=== PATIENT | male | born 2000 ===

== ENCOUNTER 2025-04-08 08:59 | Outpatient (CLI) | payer BC, SELFPAY ==
--- OUTSIDE RECORDS SUMMARY | 2024-04-25 10:26 | XMS_ITS | Encounter Summary ---
Author Name [facility] [place] [facility] [place] [facility] [place] Address [address] [place] [address] Care Team Providers Care Freelance Designer Name Role Phone VAN CRUZ Primary Care Provider Unavailabl e Insurance Providers: All historical and current Section Date Range: From patient's date of to the date document was created. This section includes the names of all active insurance providers for the patient. Insurance Provider Type of Coverage Plan Name Start of Policy Coverage End of Policy Coverage Group Number Member ID Insurance Provider's Telephone Number Policy Mott's Name Patient's Relationship to Policy Mott [place] PREFERRED PROVIDER ORGANIZAT ION (PPO) FEP BASIC FAM Aug 21, 2010 112 [id number] [phone] FRIDA,CL AUDIA NATURAL CHILD ANTHEM [place] FEP PREFERRED PROVIDER ORGANIZAT ION (PPO) FEP BASIC FAM Aug 21, 2010 112 [id number] [phone] FRIDA,CL AUDIA NATURAL CHILD AN[place] FEP PREFERRED PROVIDER ORGANIZAT ION (PPO) FEP BASIC FAM Aug 21, 2010 112 [id number] [phone] FRIDA,CL AUDIA NATURAL CHILD [place] FEP PREFERRED PROVIDER ORGANIZAT ION (PPO) FEP BASIC FAM Aug 21, 2010 112 [id number] [phone] FRIDA,CL AUDIA NATURAL CHILD [place] FEP ([id number]) PRESCRIPT ION FEPRX Aug 21, 2010 [id number] [phone] FRIDA,RI CARDO NATURAL CHILD Selected Encounter This section includes the information on record at [place] for the Encounter. Date/Time Encounter Type Encounter Description Reason Provider Source Apr 25, 2024 03:26 PM EMERGENCY DEPT VISIT [facility] EMERGENCY DEPT ICD-10-CM Z76.0 Encounter for issue of repeat prescription CAESAR RUGGIERO [facility] Encounter Template Text not used by [place] Assessments - Encounter Diagnoses This section includes the primary and secondary diagnoses documented for the Encounter. Date/Time Primary/Secondary Diagnosis Diagnosis Name Provider Source Apr 25, 2024 03:52 PM PRIMARY Encounter for issue of repeat prescription CAESAR RUGGIERO Vladimir [facility] Apr 25, 2024 03:52 PM SECONDARY Anxiety disorder, unspecified CAESAR RUGGIERO [facility] Plan of Treatment: Future Appointments (+ 6 months) and Future Tests (+/- 45 days) The Plan of Treatment section includes future care activities for the patient from all [place] treatmentfacilities. This section includes future appointments and future orders which are active, pending or scheduled. Future Appointments This section includes appointments that were scheduled to occur 6 months from the date of the Encounter, up to a maximum of 20 appointments. The data comes from all [place] treatment facilities. Appointment Date/Time Appointment Type Appointme nt Facility Name Aug 06, 2024 01:25 PM AMBULATORY - MEDICINE [facility] Sep 05, 2024 09:30 AM AMBULATORY - MEDICINE [facility] Oct 08, 2024 08:00 AM AMBULATORY - PSYCHIATRY [facility] Vital Signs: All taken on the encounter date This section contains inpatient and outpatient Vital Signs collected on the date of the Encounter. Date/Time Temperature Pulse Blood Pressure Respiratory Rate SP02 Pain Height Weight Body Mass Index Source Apr 25, 2024 03:33 PM 98.3 63 148/93 [address] [facility] Social History: Smoking Status (Most current) and Tobacco Use (All prior to encounter date) This section includes the most current, and the historical, smoking and tobacco- related health factors from the [place] facility where the Encounter took place. Current Smoking Status This section includes the most current smoking, or tobacco-related health factor, from the [place] facility where the Encounter took place. Date/Time Current Smoking Status Comment Lamin gonzalez Jul 28, 2022 09:20 AM VA-TOBACCO NEVER USED [facility] Encounter Notes: All associated encounter notes This section contains the clinical notes associated to the Encounter. Date/Time Encounter Note(s) Provider Source Apr 25, 2024 03:48 PM PHYSICIAN EMERGENC Y DEPT NOTE: LOCAL TITLE: EMERGENCY DEPARTMENT ST STANDARD TITLE: PHYSICIAN EMERGENCY DEPT NOTE DATE OF NOTE: APR 25, 2024@15:48 ENTRY DATE: APR 25, 2024@15:51 AUTHOR: CAESAR RUGGIERO EXP COSIGNER: URGENCY: STATUS: COMPLETED TRIAGE CHIEF COMPLAINT: medication refill HPI: --- 24 yo M on venlafaxine for anxiety who pw requesting refill while awaiting mail order to arrive. No other issues. REVIEW OF SYSTEMS: See HPI for further details. At least 10 systems reviewed and otherwise negative, except as noted above MEDICAL HISTORY: 1) Anxiety disorder 2) Pain of right knee region 3) Headache ALLERGIES: Patient has answered NKA CURRENT MEDICATIONS: Active Outpatient Medications (including Supplies): Active Outpatient Medications Status 1) VENLAFAXINE HCL 75MG 24HR SA CAP TAKE ONE CAPSULE BY ACTIVE MOUTH ONCE A DAY WITH FOOD. DO NOT ABRUPTLY DISCONTINUE MEDICATION. I have briefly reviewed the patient's medication list with the patient and/or his/her care-occasional caregiver. Any medication discrepancies have been resolved. Patient will be provided with an updated list of his/her medication(s) if discharged from ED. SURGICAL HISTORY: not pertinent unless note in HPI FAMILY HISTORY: not pertinent unless noted in HPI SOCIAL HISTORY: Smoking status: No data available for: Current Tobacco User Alcohol Use: ____ PHYSICAL EXAM: VITAL SIGNS: Temp: 98.3 F [36.8 C] (04/25/2024 15:33) HR: 63 (04/25/2024 15:33) BP: 148/93 (04/25/2024 15:33) RR: 16 (04/25/2024 15:33) O2 Sat: 97% (04/25/2024 15:33) Measurement DT PAIN 04/25/2024 15:33 0 CONST: alert, nad ------ HENT: airway patent. ---- EYES: sclera clear, EOMI, no obvious jaundice ---- NECK: Nl rom. no rigidity. ---- CV: regular rate --- PULM: no stridor. nonlabored ----- ABDOMEN: deferred ---- : deferred -- RECTAL: deferred ------ EXTR: wwp ----- NEURO: alert ------ observed mobility in ed- ambulatory PSYCH: nl mood, affect ----- SKIN: other observed skin wnl ---- ED MEDICAL DECISION MAKING and ED COURSE: 24 yo M on venlafaxine for anxiety who pw requesting refill while awaiting mail order to arrive. Spoke with pharmacy, will provide partial. Went over home care instructions, return precautions, and follow up. Questions answered. Telehealth number given as additional resource. LABS: na ----- RADIOLOGY: na MEDICATIONS GIVEN IN ED: [ x ] NO DECISION to ADMIT / DISCHARGE TIME: -------- OENOLOGIST SERVICE/TIME: Emergency Department (ED) Medical Decision Making (MDM) Category: Low Medical Decision Making: Category 1: I have reviewed prior external note(s) from the following sources: Office records DISPOSITION: home Nursing notes, medications, vital signs, allergies and pertinent labs & imaging studies reviewed (see chart for details) with lab results reviewed with patient/family and radiology results reviewed with patient/family. DISPOSITION CONDITION:[ x ] Improved [ ] Unchanged [ ] Deteriorated ADDITIONAL SIGNATURE PCP: [ x] YES [ ] NO [ ] not listed CLINICAL IMPRESSION: 1 - medication refill 2 - 3 - DISCHARGE INSTRUCTIONS AND PATIENT-DIRECTED FOLLOW-UP RECOMMENDATIONS FROM DR RUGGIERO: see also additional printed discharge instructions DIET: your usual ACTIVITY: your usual, as tolerated NEW MEDS: none MEDICATION RECONCILIATION: Continue all prescribed FOLLOW-UP WITH PRIMARY LEATHER TANNER/SPECIALIST: follow up with your primary care doctor in 1 week or sooner RETURN TO EMERGENCY: as discussed for worsening or changing symptoms Active Outpatient Medications (including Supplies): Active Outpatient Medications Status 1) VENLAFAXINE HCL 75MG 24HR SA CAP TAKE ONE CAPSULE BY ACTIVE MOUTH ONCE A DAY WITH FOOD. DO NOT ABRUPTLY DISCONTINUE MEDICATION. /marsha/ CAESAR RUGGIERO Emergency Department Physician Signed: 04/25/2024 17:23 Receipt Acknowledged By: 04/29/2024 08:33 /marsha/ VAN CRUZ STAFF PHYSICIAN 04/28/2024 08:29 /marsha/ TRISH DE LA TORRE, RN REGISTERED NURSE CAESAR RUGGIERO [facility]
--- OUTSIDE RECORDS SUMMARY | 2024-04-25 10:26 | XMS_ITS | Encounter Summary ---
Author Name [facility] [place] [facility] [place] [facility] [place] Address [address] [place] [id number] Care Team Providers Care Captain Fire Prevention Bureau Name Role Phone VAN CRUZ Primary Care [...] FEP BASIC FAM Aug 21, 2010 112 [id number] [phone] FRIDA,CL AUDIA NATURAL CHILD ANTHEM [employer] FEP PREFERRED PROVIDER ORGANIZAT ION (PPO) FEP BASIC FAM Aug 21, 2010 112 [id number] [phone] FRIDA,CL AUDIA NATURAL CHILD AN[employer] FEP PREFERRED PROVIDER ORGANIZAT ION (PPO) FEP BASIC FAM Aug 21, 2010 112 [id number] [phone] FRIDA,CL AUDIA NATURAL CHILD [place] FEP PREFERRED PROVIDER ORGANIZAT ION (PPO) FEP BASIC FAM Aug 21, 2010 112 [id number] [phone] FRIDA,CL AUDIA NATURAL CHILD [place] FEP ([id number]) PRESCRIPT ION FEPRX Aug 21, 2010 [id number] [phone] FRIDA,RI CARDO NATURAL CHILD Selected Encounter This section includes the information on record at [place] for the Encounter. Date/Time Encounter Type Encounter Description Reason Provider Source Apr 25, 2024 03:26 PM Outpatient Encounter EMERGENCY DEPT MARCELLO MATOS Encounter Template Text not used by [place] Plan of Treatment: Future Appointments (+ 6 months) and Future Tests (+/- 45 days) The Plan of Treatment section includes future care activities for the patient from all [place] treatmentfacilities. This section includes future appointments and future orders which are active, pending or scheduled. Future Appointments This section includes appointments that were scheduled to occur 6 months from the date of the Encounter, up to a maximum of 20 appointments. The data comes from all [place] treatment facilities. Appointment Date/Time Appointment Type Appointme nt Facility Name Aug 06, 2024 01:25 PM AMBULATORY - MEDICINE [facility] Sep 05, 2024 09:30 AM AMBULATORY - MEDICINE [facility] Oct 08, 2024 08:00 AM AMBULATORY - PSYCHIATRY [facility] Vital Signs: All taken on the encounter date This section contains inpatient and outpatient Vital Signs collected on the date of the Encounter. Date/Time Temperature Pulse Blood Pressure Respiratory Rate SP02 Pain Height Weight Body Mass Index Source Apr 25, 2024 03:33 PM 98.3 63 148/93 16 97 0 [facility] Social History: Smoking Status (Most current) and Tobacco Use (All prior to encounter date) This section includes the most current, and the historical, smoking and tobacco- related health factors from the [place] facility where the Encounter took place. Current Smoking Status This section includes the most current smoking, or tobacco-related health factor, from the [place] facility where the Encounter took place. Date/Time Current Smoking Status Comment Facil jordany Jul 28, 2022 09:20 AM VA-TOBACCO NEVER USED [facility] Encounter Notes: All associated encounter notes This section contains the clinical notes associated to the Encounter. Date/Time Encounter Note(s) Provider Source Apr 25, 2024 03:34 PM EMERGENCY DEPT TRI AGE NOTE: LOCAL TITLE: EMERGENCY DEPARTMENT TRIAGE NOTE STANDARD TITLE: EMERGENCY DEPT TRIAGE NOTE DATE OF NOTE: APR 25, 2024@15:34 ENTRY DATE: APR 25, 2024@15:34:29 AUTHOR: MARCELLO MATOS EXP COSIGNER: URGENCY: STATUS: COMPLETED Emergency Department/Urgent Care Center Triage Patient age:24 Sex: MALE On arrival patient was: AMBULATORY Patient phone number: Allergies: Patient has answered NKA Subjective/Chief Complaint: medication refll Objective: states he needs a partial med refill of his effexor until his arrives in the mail. no other complaints to this RN The patient is not a fall risk. BP: 148/93 P: 63 R: 16 WT: T: 98.3 HT: Sepsis Screening Evaluation Emergency Severity Index (JANICE) level Level 4 Current Medications: Active Outpatient Medications (including Supplies): Active Outpatient Medications Status 1) VENLAFAXINE HCL 75MG 24HR SA CAP TAKE ONE CAPSULE BY ACTIVE MOUTH ONCE A DAY WITH FOOD. DO NOT ABRUPTLY DISCONTINUE MEDICATION. Current Problems: 1) Anxiety disorder 2) Pain of right knee region 3) Headache Suicide Screen: [place] Suicide Severity Rating Scale (C-SSRS) screener 1. Over the past month, have you wished you were or wished you could go to sleep and not wake up? No 2. Over the past month, have you had any actual thoughts of killing yourself? No 3. Over the past month, have you been thinking about how you might do this? Response not required due to responses to other questions. 4. Over the past month, have you had these thoughts and had some intention of acting on them? Response not required due to responses to other questions. 5. Over the past month, have you started to work out or worked out the details of how to kill yourself? Response not required due to responses to other questions. 6. If yes, at any time in the past month did you intend to carry out this plan? Response not required due to responses to other questions. 7. In your lifetime, have you ever done anything, started to do anything, or prepared to do anything to end your life (for example, collected pills, obtained a gun, gave away valuables, went to the roof but didn't jump)? No 8. If YES, was this within the past 3 months? Response not required due to responses to other questions. /marsha/ MARCELLO MATOS RN Signed: 04/25/2024 15:35 MARCELLO MATOS [facility]
--- OUTSIDE RECORDS SUMMARY | 2024-08-06 08:25 | XMS_ITS | Encounter Summary ---
Author Name [facility] [place] [facility] [place] [facility] [place] Address [address] [place] [address] Care Team Providers Care Certified Professional Coder Name Role Phone VAN CRUZ Primary Care [...] FEP BASIC FAM Aug 21, 2010 112 [id number] [phone] FRIDA,CL AUDIA NATURAL CHILD ANTHEM [employer] [place] FEP PREFERRED PROVIDER ORGANIZAT ION (PPO) FEP BASIC FAM Aug 21, 2010 112 [id number] [phone] FRIDA,CL AUDIA NATURAL CHILD ANTHEM [employer] [place] FEP PREFERRED PROVIDER ORGANIZAT ION (PPO) FEP BASIC FAM Aug 21, 2010 112 [id number] [phone] FRIDA,CL AUDIA NATURAL CHILD [place] FEP PREFERRED PROVIDER ORGANIZAT ION (PPO) FEP BASIC FAM Aug 21, 2010 112 [id number] [phone] FRIDA,CL AUDIA NATURAL CHILD [place] FEP ([id number]) PRESCRIPT ION FEPRX Aug 21, 2010 [id number] [phone] FRIDA,RI CARDO NATURAL CHILD Selected Encounter This section includes the information on record at [place] for the Encounter. Date/Time Encounter Type Encounter Description Reason Provider Source Aug 06, 2024 01:25 PM EMERGENCY DEPT VISIT [facility] EMERGENCY DEPT ICD-10-CM F41.9 Anxiety disorder, unspecified GENDI,WAHIED IHE Encounter Template Text not used by [place] Assessments - Encounter Diagnoses This section includes the primary and secondary diagnoses documented for the Encounter. Date/Time Primary/Secondary Diagnosis Diagnosis Name Provider Source Aug 06, 2024 03:41 PM PRIMARY Anxiety disorder, unspecified GENDI,WAHIED [facility] Plan of Treatment: Future Appointments (+ 6 months) and Future Tests (+/- 45 days) The Plan of Treatment section includes future care activities for the patient [facility] [place] [facility] This section includes future appointments and future orders which are active, pending or scheduled. Future Appointments This section includes appointments that were scheduled to occur 6 months from the date of the Encounter, up to a maximum of 20 appointments. The data comes from all [facility]. Appointment Date/Time Appointment Type Appointme nt Facility Name Sep 05, 2024 09:30 AM AMBULATORY - MEDICINE [facility] Oct 08, 2024 08:00 AM AMBULATORY - PSYCHIATRY [facility] Active, Pending, and Scheduled Orders This section includes a listing of several types of active, pending, and scheduled orders, including clinic medications orders, diagnostic test orders, procedure orders and consult orders; where the start date of the order is 45 days before the date of the Encounter or 45 days after the date of theEncounter. The data comes from all [facility]. Test Date/Time Test Type Test Details Facility Name Aug 22, 2024 12:00 AM Laboratory - Chemistry Order [id number] BLOOD [facility] Aug 22, 2024 12:00 AM Laboratory - Chemistry Order COMPREHENSIVE METABOLIC PANEL GREEN LI/HEP BLD/PLAS PLASMA [facility] Aug 22, 2024 12:00 AM Laboratory - Chemistry Order CBC BLOOD [facility] Aug 22, 2024 12:00 AM Laboratory - Chemistry Order LIPID PANEL (STL) GREEN LI/HEP BLD/PLAS PLASMA [facility] Aug 22, 2024 12:00 AM Laboratory - Chemistry Order TSH (MA-PB) GOLD/RED SST SERUM [facility] Aug 22, 2024 12:00 AM Laboratory - Chemistry Order VITAMIN D, 25-HYDROXY GOLD/RED SST SERUM [facility] Vital Signs: All taken on the encounter date This section contains inpatient and outpatient Vital Signs collected on the date of the Encounter. Date/Time Temperature Pulse Blood Pressure Respiratory Rate SP02 Pain Height Weight Body Mass Index Source Aug 06, 2024 01:46 PM 98.2 69 152/88 16 0 [facility] Social History: Smoking Status (Most current) and Tobacco Use (All prior to encounter date) This section includes the most current, and the historical, smoking and tobacco- related health factors from the [facility] where the Encounter took place. Current Smoking Status This section includes the most current smoking, or tobacco-related health factor, from the [place] facility where the Encounter took place. Date/Time Current Smoking Status Comment Facil carlos Jul 28, 2022 09:20 AM [place]-TOBACCO NEVER USED [facility] Encounter Notes: All associated encounter notes This section contains the clinical notes associated to the Encounter. Date/Time Encounter Note(s) Provider Source Aug 06, 2024 03:24 PM PHYSICIAN EMERGENC Y DEPT NOTE: LOCAL TITLE: EMERGENCY DEPARTMENT [facility] STANDARD TITLE: PHYSICIAN EMERGENCY DEPT NOTE DATE OF NOTE: AUG 06, 2024@15:24 ENTRY DATE: AUG 06, 2024@15:24:55 AUTHOR: MYA ACOSTA COSIGNER: URGENCY: STATUS: COMPLETED 24 yo M on venlafaxine for anxiety who presents to ER C/O requesting refill VENLAFAXINE HCL 75MG while awaiting mail order to arrive. No other issues. No depression no SI no HI REVIEW OF SYSTEMS: See HPI for further details. All 10 systems reviewed and otherwise negative unless otherwise detailed herein. PAST MEDICAL HISTORY: 1) Anxiety disorder 2) Pain of right knee region 3) Headache CURRENT MEDICATIONS: Active Outpatient Medications (including Supplies): Active Outpatient Medications Status 1) VENLAFAXINE HCL 75MG 24HR SA CAP TAKE ONE CAPSULE BY MOUTH ACTIVE ONCE A DAY WITH FOOD. DO NOT ABRUPTLY DISCONTINUE MEDICATION. Indication: FOR ANXIETY Pending Outpatient Medications Status 1) VENLAFAXINE HCL 75MG 24HR SA CAP TAKE ONE CAPSULE BY MOUTH PENDING ONCE A DAY WITH FOOD. DO NOT ABRUPTLY DISCONTINUE MEDICATION. Indication: FOR ANXIETY 2 Total Medications No medications found.. 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 Any medication discrepancies have been resolved. Patient will be provided with an updated list of his/her medication(s). SURGICAL HISTORY: not pertinent FAMILY HISTORY: not pertinent SOCIAL HISTORY: Social History Main Topics: Smoking status: No data available for: Current Tobacco User Alcohol Use: not indorsed ____ Illicit Drug Use: not indorsed Sexual Activity: Other Topics of Concern: Child bearing age: N/A LMP: N/A possible: N/A ALLERGIES: Review of patient's allergies indicates: Patient has answered NKA PHYSICAL EXAM: VITAL SIGNS: 152/88 (08/06/2024 13:46)69 (08/06/2024 13:46)97% (04/25/2024 15:33)98.2 F [36.8 C] (08/06/2024 13:46)16 (08/06/2024 13:46)The OBJECT WEIGHT LAST 3 was NOT found...Contact IRM. MAThe OBJECT was NOT found...Contact IRM.PAIN ASSESSMENTThe OBJECT was NOT found...Contact IRM. Measurement DT PAIN 08/06/2024 13:46 0 General: cooperative, well appearing, no acute distress HEENT: atraumatic, symmetric, sclera anicteric, no pharyngeal erythema/exudate Neck: No JVD, no LAD CV: RRR, normal S1/S2, no murmurs Lungs: CTAB, no rales Abd: nontender, nondistended, nml bowel sounds Skin: no rashes or lesions, warm, dry Neuro: A&O x3, follows commands, no focal deficits, CN II-XII grossly in tact Ext: 5/5 strength in all extremities, 2+ pulses, good sensation throughout LABS: RADIOLOGY: ECG IMPRESSION: ED COURSE & MEDICAL DECISION MAKING: Nursing notes, medications, vital signs, allergies and pertinent labs & imaging studies reviewed (see chart for details) with lab results reviewed with patient and family/caregivers at bedside and radiology results reviewed with patient and any family/caregivers at bedside. Stable, alert, nontoxic, nonfocal with clinically apparent Clinical information obtained from an independent historian. History obtained from or confirmed by: Discussed with radiology regarding test interpretation imaging:patient and family I performed an independent interpretation of:see notes Patient's care impacted by: _x__Medical records Management of the patient was discussed with: ___Hospitalist _x__Consultant psych ___Behavioral health provider I considered admission/ observation but decided upon discharge due to: hospitalization not required STOVE REFINISHER SERVICE/TIME: MEDICATIONS GIVEN IN ED: [ ] YES [ x ] NO DIFFERENTIAL DIAGNOSES CONSIDERED: DECISION to ADMIT / DISCHARGE TIME: 15.30 SMOKING CESSATION RECOMMENDATION: The patient was strongly advised to consider stopping smoking, advised of risks of smoking and benefits of stopping; and was recommended for referral/abatement options. DISPOSITION CONDITION:[ ] Improved [ x ] Unchanged [ ] Deteriorated CLINICAL IMPRESSION: 1 - anxiety on venlafaxine requesting refill VENLAFAXINE HCL 75MG while awaiting mail order to arrive. No other issues. No depression no SI no HI Refill medicine and to follow-up with psychiatry and behavioral health return to ER if SI or HI or new symptoms 2 - 3 - DISCHARGE INSTRUCTIONS AND PATIENT-DIRECTED FOLLOW-UP RECOMMENDATIONS: DIET: No change ACTIVITY: As tolerated NEW MEDS: Refill his medicine venlafaxine MEDICATION RECONCILIATION: CONTINUE ALL PRESCRIBED MEDICATIONS DIRECTED EXCEPT: FOLLOW-UP WITH PRIMARY ELEMENTARY VOCAL MUSIC TEACHER/SPECIALIST: routine in 1-2 weeks if not improving, sooner if worse RETURN TO EMERGENCY: if any worries or concerns ADDITIONAL SIGNATURE PCP: [ x] YES [ ] NO [ ] not listed Active Outpatient Medications (including Supplies): Active Outpatient Medications Status 1) VENLAFAXINE HCL 75MG 24HR SA CAP TAKE ONE CAPSULE BY MOUTH ACTIVE ONCE A DAY WITH FOOD. DO NOT ABRUPTLY DISCONTINUE MEDICATION. Indication: FOR ANXIETY Pending Outpatient Medications Status 1) VENLAFAXINE HCL 75MG 24HR SA CAP TAKE ONE CAPSULE BY MOUTH PENDING ONCE A DAY WITH FOOD. DO NOT ABRUPTLY DISCONTINUE MEDICATION. Indication: FOR ANXIETY 2 Total Medications /marsha/ MYA ACOSTA MD Staff Physician, Emergency Department Signed: 08/06/2024 15:33 Receipt Acknowledged By: 08/11/2024 10:10 /marsha/ VAN CRUZ STAFF PHYSICIAN MYA ACOSTA [facility] Aug 06, 2024 01:45 PM EMERGENCY DEPT TRI AGE NOTE: LOCAL TITLE: EMERGENCY DEPARTMENT TRIAGE NOTE STANDARD TITLE: EMERGENCY DEPT TRIAGE NOTE DATE OF NOTE: AUG 06, 2024@13:45 ENTRY DATE: AUG 06, 2024@13:45:24 AUTHOR: JOYCELYN RODRÍGUEZ EXP COSIGNER: URGENCY: STATUS: COMPLETED Emergency Department/Urgent Care Center Triage Patient age:24 Sex in chart: MALE Mode of Arrival: Self Mode of Mobility: * Walk Chief Complaint: medication refill advertising 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 Pt states he is out of his Effexor. Pt denies any additional medical complaints. Level of Consciousness (AVPU): Alert = Appears aware of and responsive to the environment on their own. Follows commands, opens eyes spontaneously, and tracks objects. Vital Signs: Temperature 98.2 F (36.8 C) Pulse 69 Respirations 16 Blood Pressure 152/88 Pulse Oximetry 98 Room Air National Early Warning Score (NEWS): The NEWS total is 0. 1. Temperature (C/F): Score = 0 36.1 - 38.0 C (96.9 - 100.4 F) 2. Pulse: Score = 0 51-90 3. Respirations: Score = 0 12-20 4. Blood Pressure (Only Systolic BP, mmHg): Score = 0 111-219 5. Pulse Oximetry: Score = 0 96% or greater 6. Supplemental oxygen in use: Score = 0 No 7. AVPU: Score = 0 Alert Pain: No pain Pain Score: 0 Suicide Screen: [place] Suicide Severity Rating Scale (C-SSRS) screener 1. [...] required due to responses to other questions. Emergency Severity Index (JANICE) level: Level 5 Previously documented allergies: Patient has answered NKA Current Problems: 1) Anxiety disorder 2) Pain of right knee region 3) Headache /es/ JOYCELYN RODRÍGUEZ PLANT PRODUCTION MANAGER REGISTERED NURSE Signed: 08/06/2024 13:47 JOYCELYN RODRÍGUEZ [facility]
--- OUTSIDE RECORDS SUMMARY | 2025-04-08 09:06 | XMS_ITS | Continuity of Care Document ---
Author Name [facility] Organization [facility] Care Team Providers Care Actuarial Trainee Name Role Phone [facility] Unavailable Unavailable Problems Combined list of problems from Department of [facility] and [facility] facilities. It does not include entries that were removed or entered in error. Problem Status Onset Date Problem Type Date of Resolution Comments Source Pneumonia, unspecified organism Active 7 Condition [facility] Acute upper respiratory infection, unspecified Active 7 Condition [facility] Anxiety disorder Active Condition [facility] Headache Active Condition [facility] Pain of right knee region Active Condition [facility] Adjustment disorder Active Condition Unknown Organization OCD - Obsessive-compuls job disorder Active Condition Unknown Organization Patellar tendinitis, right knee Active Condition [facility] Diagnosis: ICD-10-CM F43.20 Adjustment disorder, unspecified Active Diagnosis [facility] Diagnosis: ICD-10-CM F41.9 Anxiety disorder, unspecified Active Diagnosis [facility] Diagnosis: ICD-10-CM Z71.9 Counseling, unspecified Active Diagnosis [facility] Diagnosis: ICD-10-CM Z76.0 Encounter for issue of repeat prescription Active Diagnosis [facility] Medications Combined list of outpatient medications from Department of [facility] and [facility] facilities.Medications provided include 1) outpatient medications from the last 15 months, and 2) patient-reported medications. Medication Details Route Status Patient Instructions Prescription Expires Prescription Number Last Dispense Date Ordering Provider Order Date Order Qty Source EFFEXOR XR (BRAND) 75 MG ORAL CP24 TAKE ONE CAPSULE BY MOUTH ONCE A DAY WITH FOOD. DO NOT ABRUPTLY DISCONTI NUE MEDICATI ON. 09/26/2024 [id number] VAN CRUZ 2023 90 [facility] Effexor XR 75 mg oral capsule, extended release 3 cap(s), Oral, Daily, # 180 cap(s), 3 total refill(s ), Maintena nce, Pharmacy : [address] [facility] Oral (given by mouth) Ordered 2020 180.0 0030[facility] Effexor XR 75 mg oral capsule, extended release 3 cap(s), Oral, Daily, # 180 cap(s), 3 total refill(s ), [facility], Route to [facility] Oral (given by mouth) Discont inued 03/27/2021 1 2020 180.0 0030C[facility] l hydrOXYzine hydrochlori de 25 mg oral tablet 1 tab(s), Oral, every day at bedtime, PRN as needed for anxiety, # 60 tab(s), 1 total refill(s ), Acute, 12/10/20 11:28:00 AM CDT, Pharmacy : [address] [facility] Oral (given by mouth) Discont inued 12/10/20202020 60.0 0030[facility] hydrOXYzine hydrochlori de 25 mg oral tablet 1 tab(s), Oral, every day at bedtime, # 60 tab(s), 1 total refill(s ), Acute, 12/10/21 2:00:00 AM CDT, Pharmacy : [address] [facility] Oral (given by mouth) Complet ed 12/10/2021 1 2021 60.0 0030[facility] naproxen 500 mg oral delayed release tablet 1 tab(s), Oral, BID, with food, # 60 tab(s), 0 total refill(s ), 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 Oral (given by mouth) Complet ed 10/10/2020 1 2020 60.0 0030[facility] l venlafaxine 150 mg oral capsule, extended release venlafax ine 150 mg oral capsule, extended release Start Date: 12/22/19 Stop Date: 03/27/21 Status: Disconti nued Repeat number: 1 Discont inued 03/27/20212020 No Facilit y Access venlafaxine 37.5 mg oral capsule, extended release venlafax ine 37.5 mg oral capsule, extended release Start Date: 05/30/19 Stop Date: 09/11/20 Status: Disconti nued Repeat number: 1 Discont inued 09/11/20202020 No Facilit y Access VENLAFAXINE HCL 75MG 24HR CAP,SA TAKE ONE CAPSULE BY MOUTH ONCE A DAY WITH FOOD. DO NOT ABRUPTLY DISCONTI NUE MEDICATI ON. ORAL ACTIVE 11/26/2025 [id number] JANICE MENARD SSA S 2024 90 [facility] VENLAFAXINE HCL 75MG 24HR CAP,SA TAKE ONE CAPSULE BY MOUTH ONCE A DAY WITH FOOD. DO NOT ABRUPTLY DISCONTI NUE MEDICATI ON. ORAL DISCONT INUED 09/26/2024 [id number] NANCY,NI DHI 2023 90 [facility] VENLAFAXINE HCL 75MG 24HR CAP,SA TAKE ONE CAPSULE BY MOUTH ONCE A DAY FOR ANXIETY WITH FOOD. DO NOT ABRUPTLY DISCONTI NUE MEDICATI ON. ORAL 09/05/2024 [id number] GENJEFFERSON,MARE IED 2023 30 [facility] Allergies, Adverse Reactions, Alerts Combined list of allergies from Department of Defense and Veterans Affairs facilities. It does not include entries that were removed or entered in error. Substance Category Reaction Severity Reaction type Status Date Reported Comments Source No Known Allergies Drug allergy (disorder) active 05/09/2017 [facility] Immunizations Combined list of available immunizations from the Department of Defense and Veterans Affairs facilities. 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 HPV (PAPILLOMAVIR US-GARDISIL) (HISTORICAL) 2020 62 complet ed [facility] COVID-19 (JOSE), VECTOR-NR, RS-AD26, PF, 0.5 ML 1 2020 212 complet ed [facility] COVID-19 vaccine, vector-nr, rS-Ad26, PF, 0.5 mL 2020 [place], [employer] (JSN) Not Given COVID-19 vaccine, vector-nr , rS-Ad26, PF, 0.5 mL DoD influenza, injectable, quadrivalent, preservative free 2019 ALONSO ZAZUETA () Not Given influenza , injectabl e, quadrival ent, preservat job free DoD Influenza, injectable, quadrivalent, preservative free 0 2019 150 (MVX) complet ed Influenza , injectabl e, quadrival ent, preservat job free DoD influenza, injectable, quadrivalent 2018 [facility] [id number] 158 Seqirus complet ed influenza , injectabl e, quadrival ent 07/02/19 Given Ambulat ory Pharmac y influenza, injectable, quadrivalent, contains preservative 1 2018 TING HERNADEZ [id number] 158 [employer] (SEQ) complet ed influenza , injectabl e, quadrival ent, contains preservat job DoD influenza, injectable, quadrivalent- pf 2017 [id number] 150 GlaxoSmithKli ne complet ed influenza , injectabl e, quadrival ent-pf 07/03/18 Given Ambulat ory Pharmac y Influenza, injectable, quadrivalent, preservative free 0 2017 [id number] 150 SmithKline (SKB) complet ed Influenza , injectabl e, quadrival ent, preservat job free DoD varicella virus vaccine 2017 zBertha soto Arm [id number] 21 Merck & Company Inc complet ed varicella virus vaccine 05/29/18 Given Ambulat ory Pharmac y hepatitis A-hepatitis B vaccine 2017 Beatriz malone Arm [id number] 104 GlaxoSmithKli ne complet ed hepatitis A-hepatit is B vaccine 05/29/18 Given Ambulat ory Pharmac y varicella virus vaccine 2 2017 CELESTINA WELSH P [id number] 21 Merck (MSD) complet ed varicella virus vaccine DoD hepatitis A and hepatitis B vaccine 3 2017 CELESTINA WELSH P [id number] 104 [facility] ([facility] complet ed hepatitis A and hepatitis B vaccine DoD influenza, injectable, quadrivalent 2016 [facility] [id number] 158 Seqirus complet ed influenza , injectabl e, quadrival ent 06/08/17 Given Ambulat ory Pharmac y hepatitis A-hepatitis B vaccine 2016 zzLef t Arm [id number] 104 GlaxoSmithKli ne complet ed hepatitis A-hepatit is B vaccine 06/08/17 Given Ambulat ory Pharmac y poliovirus vaccine, inactivated [facility] [id number] 10 sanofi pasteur complet ed polioviru s vaccine, inactivat ed 06/08/17 Given Ambulat ory Pharmac y poliovirus vaccine, inactivated 1 2016 NANCI PANDA [id number] 10 Sanofi Pasteur ([facility]) complet ed polioviru s vaccine, inactivat ed DoD hepatitis A and hepatitis B vaccine 2 2016 Unknown, Provider [id number] 104 [facility] (SKB) complet ed hepatitis A and hepatitis B vaccine DoD influenza, injectable, quadrivalent, contains preservative 1 2016 NANCI PANDA [id number] 158 Seqirus (SEQ) complet ed influenza , injectabl e, quadrival ent, contains preservat job DoD varicella virus vaccine 2016 zzLef t Arm [id number] 21 Merck & Company Inc complet ed varicella virus vaccine 05/17/17 Given Ambulat ory Pharmac y varicella virus vaccine 1 2016 AMY BONILLA [id number] 21 Merck (MSD) complet ed varicella virus vaccine DoD adenovirus vaccine, live 2016 [id number] 143 Teva Pharmaceutica ls complet ed adenoviru s vaccine, live 05/09/17 Given Ambulat ory Pharmac y tetanus, diphtheria, acellular pertu is [facility] [id number] 115 GlaxoSmithKli ne complet ed tetanus, diphtheri a, acellular pertussis 05/09/17 Given Ambulat ory Pharmac y hepatitis A-hepatitis B vaccine 2016 zzLef t Arm [id number] 104 GlaxoSmithKli ne complet ed hepatitis A-hepatit is B vaccine 05/09/17 Given Ambulat ory Pharmac y pneumococcal polysaccharid e, 23 valent 2016 zzLef t Arm [id number] 33 Merck & Company Inc complet ed pneumococ dontae polysacch aride, 23 valent 05/09/17 Given Ambulat ory Pharmac y tuberculin purified protein derivative 2016 zzLef t Arm [id number] 96 sanofi pasteur complet ed Patient Tolerance : Negative Ambulat ory Pharmac y meningococcal polysaccharid e (MPSV4) 2016 zzRig ht Thigh [id number] 32 sanofi pasteur complet ed meningoco ccal polysacch aride (MPSV4) 05/09/17 Given Ambulat ory Pharmac y meningococcal polysaccharid e vaccine (MPSV4) 1 2016 TING ROJAS [id number] 32 Sanofi Pasteur ([facility]) complet ed meningoco ccal polysacch aride vaccine (MPSV4) DoD pneumococcal polysaccharid e vaccine, 23 valent 1 2016 TING ROJAS [id number] 33 Merck (MSD) complet ed pneumococ dontae polysacch aride vaccine, 23 valent DoD tuberculin skin test; purified protein derivative solution, intradermal 1 2016 Unknown, Provider [id number] 96 Sanofi Pasteur ([facility]) complet ed tuberculi n skin test; purified protein derivativ e solution, intraderm al DoD hepatitis A and hepatitis B vaccine 1 2016 TING ROJAS [id number] 104 [facility] ([facility]) complet ed hepatitis A and hepatitis B vaccine DoD tetanus toxoid, reduced diphtheria toxoid, and acellular pertu is vaccine, adsorbed 1 2016 TING ROJAS [id number] 115 [facility] ([facility]) complet ed tetanus toxoid, reduced diphtheri a toxoid, and acellular pertussis vaccine, adsorbed DoD Adenovirus, type 4 and type 7, live, oral 1 2016 TING ROJAS [id number] [address] [place] [address] ([facility]) complet ed Adenoviru s, type 4 and type 7, live, oral DoD measles, mumps and rubella virus vaccine 1 2016 EXEMPT 03 Transcribed (TRS) Not Given measles, mumps and rubella virus vaccine [facility] DTAP 1 2003 20 complet ed HISTORICA L INFORMATI ON - FROM OTHER REGISTRY, [facility] IPV 1 2003 10 complet ed HISTORICA L INFORMATI ON - FROM OTHER REGISTRY, [facility] MMR 1 2003 03 complet ed HISTORICA L INFORMATI ON - FROM OTHER REGISTRY, [facility] Results Combined list of recent chemistry, hematology and other laboratory results from [facility], ranging from 15 months to all on record, depending upon the facility. Order Name Results Value Reference Range Date Interpretation Specimen Comments Source Infectiou s Disease HIV-1/2 AG/AB 4G CDD LC NEGATIVE 03/23 Result Comment: Performed At: 1 [facility] [address] [place] [address] [address] [place] [address] FRANDY HELLERN PHD Ph:[phone] [address] [place] [address] Infectiou s Disease Source of Test.LC Gen Force Test (03/23/21 11:10 AM) 03/[address] [place] [address] Molecular Infectu s [facility] SARS-CoV -2 PCR Not Detected (01/19/21 3:57 PM) 01/[address] [place] [address] Molecular Infectiou s Disease Reason for Test? Screening (01/19/21 3:57 PM) 01/[address] [place] [address] Vital Signs Combined list of inpatient and outpatient Vital Signs from [facility] of [facility], ranging from 12 months to all on record, depending upon the facility. Vital Sign Value Date Comments Source SYSTOLIC BLOOD PRESSURE 152 08/06/20 24 13:46:[address] [facility] DIASTOLIC BLOOD PRESSURE 88 024 13:46:00 [facility] PAIN 0 08/06/2024 13:46:00 [facility] TEMPERATURE 98.2 08/06/2024 13:46:[address] [facility] PULSE 69 08/06/2024 13:46:00 [facility] RESPIRATION 16 08/06/2024 13:46:[address] [facility] SYSTOLIC BLOOD PRESSURE 148 04/25/20 15:33:[address] [facility] DIASTOLIC BLOOD PRESSURE 93 024 15:33:[address] [facility] PULSE OXIMETRY 97 04/25/2024 15:33:46 [facility] PAIN 0 04/25/2024 15:33:[address] [facility] TEMPERATURE 98.3 04/25/2024 15:33:[address] [facility] PULSE 63 04/25/2024 15:33:[address] [facility] RESPIRATION 16 04/25/2024 15:33:[address] [facility] Mean Arterial Pressure, Cuff (Calc) 103 mm[Hg] 09/09/2020 [facility] 132 mm[Hg] 09/09/19 18:22:[facility] Diastolic Blood Pressure 88 mm[Hg] 021 18:22:00 [facility] Mean Arterial Pressure, Cuff (Calc) 102 mm[Hg] 10/12/2020 16:56:00 [facility] Systolic Blood Pressure 143 mm[Hg] 10/12/19 16:56:00 [facility] Diastolic Blood Pressure 82 mmol 021 16:56:00 [facility] Temperature Oral 36.9 Cassie 10/12/2020 16:56:00 [facility] BP Site Left arm 10/12/2020 16:56:00 [facility] Peripheral Pulse Rate 78 bpm 10/12/2020 16:56:00 [facility] Respiratory Rate 16 br/min 10/12/2020 16:56:00 [facility] Blood Pressure Manual Automatic 10/12/2020 16:56:00 [facility] Respiratory Rate 12 br/min 09/09/2020 18:05:00 [facility] Peripheral Pulse Rate 78 bpm 09/09/2020 18:05:00 [facility] Mean Arterial Pressure, Cuff (Calc) 117 mm[Hg] 09/09/2020 18:05:00 [facility] Temperature Oral 37.1 Cassie 09/09/2020 18:05:00 [facility] Systolic Blood Pressure 142 mm[Hg] 09/09/19 18:05:00 [facility] Diastolic Blood Pressure 104 mm[Hg] 021 18:05:00 [facility] Blood Pressure Manual Manual 09/09/2020 18:05:00 [facility] BP Site Left arm 09/09/2020 18:05:00 [facility] Blood Pressure Manual Automatic 12/10/2020 16:05:00 [facility] BP Site Right arm 12/10/2020 16:05:00 [facility] Systolic Blood Pressure 118 mm[Hg] 12/11/19 16:05:00 [facility] Diastolic Blood Pressure 85 mmol 021 16:05:00 [facility] Temperature Oral 37.0 Cassie 12/10/2020 16:05:00 [facility] Respiratory Rate 15 br/min 12/10/2020 16:05:00 [facility] Peripheral Pulse Rate 75 bpm 12/10/2020 16:05:00 [facility] Mean Arterial Pressure, Cuff (Calc) 96 mm[Hg] 12/10/2020 16:05:00 [facility] BP Site Left arm 11/09/2020 16:02:[address] [place] [address] Temperature Oral 36.9 Cassie 11/09/2020 16:02:[address] [place] [address] Blood Pressure Manual Automatic 11/09/2020 16:02:[address] [place] [address] Mean Arterial Pressure, Cuff (Calc) 106 mm[Hg] 11/09/2020 16:02:[address] [place] [address] Systolic Blood Pressure 141 mm[Hg] 11/10/19 21 16:02:[address] [place] [address] Diastolic Blood Pressure 88 mmol 021 16:02:[address] [place] [address] Respiratory Rate 14 br/min 11/09/2020 16:02:[address] [place] [address] Peripheral Pulse Rate 64 bpm 11/09/2020 16:02:[address] [place] [address] Encounters Combined list of: 1) Encounters from Department of Veterans Affairs facilities going backup to the last 18 months, not all VA inpatient encounters are included; 2) Encounters from the Department of Defense facilities going backup to 280 months. Location Location Details Encounter Type Encounter Number Reason For Visit Attending Provider ADM Date DC Date Status Disposition Source [facility] D HC Program) OUTPATIENT [id number] Notes Entered by: JASON CRAIG 08 May 2017 1218 ------- ------- ------- ------- -- JASON VILLEDA 05/08 Released w/o Limitations [facility]( CRD HC Program ) [facility] D Recruit Processin g) OUTPATIENT [id number] Notes Entered by: DENISE VALLADARES 08 May 2017 1531 ------- ------- ------- ------- -- TING CALDWELL 05/08 Released w/o Limitations [facility]( CRD Recruit Process ing) [facility] D Recruit Processin g) OUTPATIENT [id number] T-3 VACCINE DIANA GARCIA L 05/17 Released w/o Limitations [facility](M CRD Recruit Process ing) [facility](MCR D Recruit Sick Call) OUTPATIENT [id number] COUGH X3 DAYS ANDRE DOWNING RA 05/22 Released w/o Limitations [facility](M CRD Recruit Sick Call) [facility](MCR D Recruit Processin g) OUTPATIENT [id number] T-22 VACCINE S RUDIMarly [place] TAMICA Scott 06/08 Released w/o Limitations [facility](M CRD Recruit Process ing) [facility](MCR D Recruit Sick Call) OUTPATIENT [id number] COUGH X2 WEEKS BLANCA ERIC H 07/03 Sick at Home/Quarter s [facility](M CRD Recruit Sick Call) [facility](MCR D Recruit Sick Call) OUTPATIENT [id number] 1ST PNA F/U NUCUP(IDC) , DAVY A 07/04 Released with Work/Duty Limitations [facility](M CRD Recruit Sick Call) [facility](MCR D Recruit Sick Call) OUTPATIENT [id number] 2ND PNA F/U NUCUP(IDC) , DAVY A 07/05 Released w/o Limitations [facility](M CRD Recruit Sick Call) [facility](MCR D Recruit Sick Call) TELE CONSULT [id number] Notes Entered by: EDUARDO MARTINEZ 30 Jul 2017 0851 ------- ------- ------- ------- -- NPV OTHER- 30 DAY PNA F/U DYLLAN MARTINEZ 07/30 Other Not Elsewhere Classified [facility](M CRD Recruit Sick Call) [facility](MCR D Recruit Sick Call) OUTPATIENT [id number] 30 day pna DYLLAN MARTINEZ 07/31 Released w/o Limitations [facility](M CRD Recruit Sick Call) [facility](31A BC [facility]) OUTPATIENT [id number] TABITHA CANTU 07/31 Released w/o Limitations [facility](3 1ABC [facility]) [facility](52A [facility]) OUTPATIENT [id number] feet abnorma lities CHARLEY RACHEL 09/13 Released w/o Limitations [facility](5 2ABC [facility]) [facility](TP [facility]) OUTPATIENT [id number] NVD x3days JENNIFER SEO 11/14 Sick at Home/Quarter s [facility](T P [facility]) [facility](TP [facility]) OUTPATIENT [id number] Congest ZEINA Lowery Crystal 12/31 Released w/o Limitations [facility](T P [facility]) [facility]) OUTPATIENT [id number] R ankle pain PAIGE VALENCIA 01/02 Released with Work/Duty Limitations [facility](T P [facility]) [facility](TP [facility]) OUTPATIENT [id number] SMART F/U PAIGE VALENCIA 01/17 Released with Work/Duty Limitations [facility](T P [facility]) [facility]) OUTPATIENT [id number] Ear px PAIGE VALENCIA 02/28 Released w/o Limitations [facility](T P [facility]) [facility](TP [facility]) OUTPATIENT [id number] lEFT HAMSTRI NG-PAIN CONTINU ING AFTER REST AND STRETCH ING DILIA BOURNE 03/25 Released with Work/Duty Limitations [facility](T P [facility]) [facility]) TELE CONSULT [id number] Notes Entered by: BENJAMIN TABARES 09 May 2018 0907 ------- ------- ------- ------- -- AXEL WAGONER 05/09 [facility](T P [facility]) [facility](TP Immunizat ions Clinic) OUTPATIENT [id number] Notes Entered by: MARISOL PEREZ P 29 May 2018 1410 ------- ------- ------- ------- -- [place] , [employer]st [employer]anks DIANE Referra l/Twinr marco Braed[place] meg CELESTINA WELSH P 05/29 Released w/o Limitations [facility](T P Immuniz ations Clinic) [facility]( Hearing Conservat ion Clinic) OUTPATIENT [id number] ANNUAL AUDIOGR AM 1ST TANKS ARI DEWEY M 05/29 Released w/o Limitations [facility](T P Hearing Conserv ation Clinic) [facility]( [facility]) TELE CONSULT [id number] Notes Entered by: LYNN CHAPMAN 03 Jul 2018 0700 ------- ------- ------- ------- -- ER FOLLOW UP/ [id number] 18/ DX PREPATE ARNOLDO TRISTAN 07/03 Referred for Appointment [facility](T P [facility]) [facility]( [facility]) OUTPATIENT [id number] 3 Right knee px; Per HM3 LI Galeas 07/03 Released with Work/Duty Limitations [facility](T P [facility]) [facility]) OUTPATIENT [id number] 2 R patella r tendini tis f/u AXEL CHOPRA 08/05 Released w/o Limitations [facility](T P [facility]) [facility]) OUTPATIENT [id number] 2 R Patella r Tendoni tis AXEL CHOPRA 08/29 Released w/o Limitations [facility](T P [facility]) [facility]( [facility]) OUTPATIENT [id number] 6 Patella r tendini tis, right knee PAIGE VALENCIA 09/24 Released w/o Limitations [facility](T P [facility]) [facility] Physical Therapy) OUTPATIENT [id number] knee - last appt in series. TAD until 01 November. MALINDA TIAN 09/30 Released w/o Limitations [facility](T P [facility] Physica l Therapy ) [facility]( [facility]) OUTPATIENT [id number] 4 Stomach Issues AXEL CHOPRA 02/03 Released w/o Limitations [facility](T P [facility]) [facility]) TELE CONSULT [id number] Notes Entered by: Esau MORALES 05 Mar 2019 1010 ------- ------- ------- ------- -- AXEL WAGONER 03/05 [facility](T P [facility]) [facility]( [facility]) TELE CONSULT [id number] Notes Entered by: LOKI BOURNE 24 Apr 2019 0851 ------- ------- ------- ------- -- Physica l Therapy ELZA Whitley 04/24 [facility](T P [facility]) [facility]( [facility]) TELE CONSULT [id number] Notes Entered by: LYNN CHAPMAN 26 May 2019 0906 ------- ------- ------- ------- -- ER FOLLOW UP/ [id number] 19/ DX: VIRAL PHARYNG SANDRA WHITE 05/26 Released to Self Care [facility](T [facility]) [facility] [facility] OUTPATIENT [id number] ANNUAL BEATA MARIANO 05/27 Released w/o Limitations [facility]( P [facility]) [facility] Physical Therapy) OUTPATIENT [id number] Patella r tendini tis, right knee TING CLARK 05/29 Released w/o Limitations [facility](T P [facility] Physica l Therapy ) [facility](TP Physical Therapy) OUTPATIENT [id number] knee - resched uled by patient . MARY PAZ 06/04 Released w/o Limitations [facility](T P Physica l Therapy ) [facility]) OUTPATIENT [id number] PHA NAV AXELRoyer SULLIVAN 06/09 Released w/o Limitations [facility](T [facility]) [facility](TP Physical Therapy) OUTPATIENT [id number] knee MARY PAZ 06/11 Released w/o Limitations [facility](T P Physica l Therapy ) [facility](TP Physical Therapy) OUTPATIENT [id number] knee MARY PAZ 06/19 Released w/o Limitations [facility](T P Physica l Therapy ) [facility](TP Physical Therapy) OUTPATIENT [id number] knee - resched uled by Brendon. MARY PAZ 06/26 Released w/o Limitations [facility](T P Physica l Therapy ) [facility]) OUTPATIENT [id number] Notes Entered by: KAUSHAL HERNADEZ 02 Jul 2019 0641 ------- ------- ------- ------- -- Flu shot TING HERNADEZ 07/02 Released w/o Limitations [facility](T [facility]) [facility] Physical Therapy) OUTPATIENT [id number] knee f/u TING CLARK 07/10 Released w/o Limitations [facility](T P [facility] Physica l Therapy ) [facility] Physical Therapy) OUTPATIENT [id number] knee LING MCKEE 08/11 Released w/o Limitations [facility](T [facility] Physica l Therapy ) [facility] Physical Therapy) OUTPATIENT [id number] knee - last appt in series. EMILE UMAÑA 08/18 Released w/o Limitations [facility](T [facility] Physica l Therapy ) [facility] Physical Therapy) OUTPATIENT [id number] Knee, F/u TING CLARK L 09/16 Released w/o Limitations [facility](T P [facility] Physica l Therapy ) [facility](TP [place] [facility]) TELE CONSULT [id number] Notes Entered by: LUIS ANDREWS 15 Jan 2020 1213 ------- ------- ------- ------- -- Knee issues SAIRA MORALEZ 01/14 [facility](T [facility]) [facility] EMR DPT VST MAYX REQ PHY/QHP [id number] Diagnos is: ICD-10- CM Z76.0 Encount er for issue of repeat prescri ption Meliza MAXWELL 09/23 [facility] Outpatient Encounter [id number] Meliza MAXWELL 09/23 [facility] Outpatient Encounter [id number] 09/24 [facility] OFFICE O/P EST MOD 30 MIN [id number] Diagnos is: ICD-10- CM F41.9 Anxiety disorde r, unspeci fied MAX CRUZ HI 10/[address] [facility] HC PRO PHONE CALL 11-20 MIN [id number] Diagnos is: ICD-10- CM F41.9 Anxiety disorde r, unspeci fied BIB GARRIDO C 10/02 [facility] Outpatient Encounter [id number] Ellen RUGGIERO 04/25 [facility] Outpatient Encounter [id number] MARCELLO MATOS 04/25 [facility] EMERGENCY DEPT VISIT LOW MDM [id number] Diagnos is: ICD-10- CM Z76.0 Encount er for issue of repeat prescri ption Ellen RUGGIERO UCY Y 04/25 [facility] Outpatient Encounter [id number] Ellen RUGGIERO UCY Y 04/25 [facility] Outpatient Encounter [id number] GENJEFFERSON,[facility] 08/06 [facility] EMERGENCY DEPT VISIT SF MDM [id number] Diagnos is: ICD-10- CM F41.9 Anxiety disorde r, unspeci fied GENDI,[facility] 08/06 [facility] Outpatient Encounter [id number] GENDI,[facility] 08/06 [facility] Outpatient Encounter [id number] NANCY,NID HI 08/22 [facility] Outpatient Encounter [id number] NANCY,NID HI 09/03 [facility] Outpatient Encounter [id number] NANCY,NID HI 09/05 [facility] Outpatient Encounter [id number] MAX CRUZ 09/05 [facility] Outpatient Encounter [id number] LUCRECIALATONIA YANEZJOHN S 09/16 [facility] PH1 ASSMT&MGMT NQHP 5-10 [id number] Diagnos is: ICD-10- CM Z71.9 As[address] Shift ing, unspeci fied LUCRECIALATONIA YANEZ S 09/16 [facility] Outpatient Encounter [id number] 09/16 [facility] Outpatient Encounter [id number] BILL WALLACE E 09/18 [facility] PSYCH DIAGNOSTIC EVALUATION [id number] Diagnos is: ICD-10- CM F41.9 Anxiety disorde r, unspeci fied DEEDEE CARRERA 10/08 [facility] Outpatient Encounter [id number] 11/24 [facility] Outpatient Encounter [id number] 12/04 [facility] Outpatient Encounter [id number] DEEDEE CARRERA 02/16 [facility] Outpatient Encounter [id number] 02/16 [facility] PH1 ASSMT&MGMT NQHP 5-10 [id number] Diagnos is: ICD-10- CM F43.20 Adjustm ent disorde r, unspeci fiDEEDEE Hale S 02/17 [facility] Procedures Combined list of: 1) Procedures from Department of [facility] Affairs facilities going back up to thelast 18 months, not all [place] non-surgical procedures are included; 2) All procedures from the Department of Defense facilities. Procedure Procedure Type Code Date Perfomer Comments Sourc e No data available for this section [facility] WAIVER SERVICES; NOT OTHERWISE SPECIFIED (NOS) [facility] PSYCHOTHERAPY, 60 MINUTES WITH PATIENT [facility] SELF-CARE/HOME MANAGMENT TRAIN (EG,ACT OF DAILY LIVING (ADL) &COMPENSAT TRAIN,MEAL PREPARATION,SAFETY PROCS,AND INSTRUCT IN USE OF ASST TECHNOLOGY DEV/ADPT EQUIP) DIR ONE-ON-ONE CONT,EA 15 MINUTES [facility] BRIEF COMM TECH-BASE SERV,E.G. VIRT CHK-IN,BY PHYS/OTH QUAL HCP,RPT E&M SERV,PROV TO EST PT,NOT ORIG FRM REL E/M SERV PROV W/IN PREV 7DAY NOR LEAD TO E/M SRV/PX W/IN NEXT 24HR/SOON KENDRA; 5-10 MIN DISC [facility] PSYCHOTHERAPY, 60 MINUTES WITH PATIENT DoD TELE ASSESS & MGT SRV PROV QUAL NONPHYS HLTH CARE PRO TO EST PAT,PARENT,GUARD NOT ORIG REL ASSESS & MGT SRV PROV W/IN PREV 7 DAYS NOR LEAD ASSESS & MGT SRV/PX W/IN NXT 24 HR/SOON APT;5-10 MIN MED DIS DoD TELE ASSESS & MGT SRV PROV QUAL NONPHYS HLTH CARE PRO TO EST PAT,PARENT,GUARD NOT ORIG REL ASSESS & MGT SRV PROV W/IN PREV 7 DAYS NOR LEAD ASSESS & MGT SRV/PX W/IN NXT 24 HR/SOON APT;5-10 MIN MED DIS DoD PSYCHOTHERAPY, 30 MINUTES WITH PATIENT DoD GROUP PSYCHOTHERAPY (OTHER THAN OF A MULTIPLE-FAMILY GROUP) DoD BRIEF EMOTIONAL/BEHAVIOR AL ASSESSMENT (EG, DEPRESSION INVENTORY, ATTENTION-DEFICIT/ HYPERACTIVITY DISORDER [ADHD] SCALE), WITH SCORING AND DOCUMENTATION, PER STANDARDIZED INSTRUMENT DoD THERAPEUTIC PROCEDURE,1 OR MORE AREAS,EACH 15 MINUTES;NEUROMUSCU LAR REEDUCATION OF MOVEMENT,BALANCE,C OORDINATION,KINEST HETIC SENSE,POSTURE,AND/ OR PROPRIOCEPTION FOR SITTING AND/OR STANDING ACTIVITIES DoD BRIEF EMOTIONAL/BEHAVIOR AL ASSESSMENT (EG, DEPRESSION INVENTORY, ATTENTION-DEFICIT/ HYPERACTIVITY DISORDER [ADHD] SCALE), WITH SCORING AND DOCUMENTATION, PER STANDARDIZED INSTRUMENT DoD GROUP PSYCHOTHERAPY (OTHER THAN OF A MULTIPLE-FAMILY GROUP) [facility] APPLICATION OF A MODALITY TO 1 OR MORE AREAS; HOT OR COLD PACKS DoD APPLICATION OF A MODALITY TO 1 OR MORE AREAS; HOT OR COLD PACKS DoD TELE ASSESS & MGT SRV PROV QUAL NONPHYS TH CARE PRO TO EST PAT,PARENT,GUARD NOT ORIG REL ASSESS & MGT SRV PROV W/IN PREV 7 DAYS NOR LEAD ASSESS & MGT SRV/PX W/IN NXT 24 HR/SOON APT;5-10 MIN MED DIS DoD THERAPEUTIC PROCEDURE,1 OR MORE AREAS,EACH 15 MINUTES;NEUROMUSCU LAR REEDUCATION OF MOVEMENT,BALANCE,C OORDINATION,KINEST HETIC SENSE,POSTURE,AND/ OR PROPRIOCEPTION FOR SITTING AND/OR STANDING ACTIVITIES DoD PSYCHOTHERAPY, 60 MINUTES WITH PATIENT DoD PSYCHOTHERAPY, 45 MINUTES WITH PATIENT DoD INFLUENZA VIRUS VACCINE, QUADRIVALENT (IIV4), SPLIT VIRUS, 0.5 ML DOSAGE, FOR INTRAMUSCULAR USE DoD APPLICATION OF A MODALITY TO 1 OR MORE AREAS; HOT OR COLD PACKS DoD PSYCHOTHERAPY, 60 MINUTES WITH PATIENT DoD APPLICATION OF A MODALITY TO 1 OR MORE AREAS; HOT OR COLD PACKS DoD THERAPEUTIC PROCEDURE, 1 OR MORE AREAS, EACH 15 MINUTES; THERAPEUTIC EXERCISES TO DEVELOP STRENGTH AND ENDURANCE, RANGE OF MOTION AND FLEXIBILITY [facility] ADMINISTRATION OF PATIENT-FOCUSED HEALTH RISK ASSESSMENT INSTRUMENT (EG, HEALTH HAZARD APPRAISAL) WITH SCORING AND DOCUMENTATION, PER STANDARDIZED INSTRUMENT [facility] PSYCHIATRIC DIAGNOSTIC EVALUATION [facility] THERAPEUTIC PROCEDURE, 1 OR MORE AREAS, EACH 15 MINUTES; THERAPEUTIC EXERCISES TO DEVELOP STRENGTH AND ENDURANCE, RANGE OF MOTION AND FLEXIBILITY [facility] PSYCHIATRIC DIAGNOSTIC EVALUATION [facility] THERAPEUTIC PROCEDURE, 1 OR MORE AREAS, EACH 15 MINUTES; THERAPEUTIC EXERCISES TO DEVELOP STRENGTH AND ENDURANCE, RANGE OF MOTION AND FLEXIBILITY [facility] EAR MOLD/INSERT, DISPOSABLE, ANY TYPE [facility] PSYCHIATRIC DIAGNOSTIC EVALUATION [facility] BRIEF EMOTIONAL/BEHAVIOR AL ASSESSMENT (EG, DEPRESSION INVENTORY, ATTENTION-DEFICIT/ HYPERACTIVITY DISORDER [ADHD] SCALE), WITH SCORING AND DOCUMENTATION, PER STANDARDIZED INSTRUMENT [facility] SUICIDE RISK ASSESSED (MDD, MDD ADOL) [facility] ADMINISTRATION OF PATIENT-FOCUSED HEALTH RISK ASSESSMENT INSTRUMENT (EG, HEALTH HAZARD APPRAISAL) WITH SCORING AND DOCUMENTATION, PER STANDARDIZED INSTRUMENT [facility] THERAPEUTIC PROCEDURE, 1 OR MORE AREAS, EACH 15 MINUTES; THERAPEUTIC EXERCISES TO DEVELOP STRENGTH AND ENDURANCE, RANGE OF MOTION AND FLEXIBILITY [facility] THERAPEUTIC, PROPHYLACTIC, OR DIAGNOSTIC INJECTION (SPECIFY SUBSTANCE OR DRUG); SUBCUTANEOUS OR INTRAMUSCULAR [facility] PATIENT EDUCATION, NOT OTHERWISE CLASSIFIED, NON-PHYSICIAN PROVIDER, GROUP, PER SESSION [facility] IMMUNIZATION ADMINISTRATION (INCLUDES PERCUTANEOUS, INTRADERMAL, SUBCUTANEOUS, OR INTRAMUSCULAR INJECTIONS); EACH ADDITIONAL VACCINE (SINGLE OR COMBINATION VACCINE/TOXOID) [facility] INFLUENZA VIRUS VACCINE, QUADRIVALENT (IIV4), SPLIT VIRUS, 0.5 ML DOSAGE, FOR INTRAMUSCULAR USE [facility] VARICELLA VIRUS VACCINE (ISSAC), LIVE, FOR SUBCUTANEOUS USE [facility] PATIENT SCREENED FOR DEPRESSION (DIGNA) [facility] AUDIOMETRIC TESTING OF GROUPS [facility] Screening Test Of Visual Acuity, Quantitative, Bilateral Screening Test Of Visual Acuity, Quantitative, Bilateral 61207 MINOR, CHANCE D [facility] Physical Therapy: ___ Se ion Segments, 15 Minutes Each Physical Therapy: ___ Session Segments, 15 Minutes Each [id number] MALINDA TIAN [facility] Patient education, not otherwise cla ified, non-physician provider, group, per se ion ARI DEWEY Meliza [facility] Threshold Audiogram (Pure Tone) Automated Threshold Audiogram (Pure Tone) Automated 0208T MACO, ARI Haider [facility] Hepatitis A And Hepatitis B (Intramuscular Use) Adult Dosage Hepatitis A And Hepatitis B (Intramuscular Use) Adult Dosage 43700 CELESTINA WELSH Hep A-Hep B; Series #: 3; 1.0 mL; IM; Right Arm; Mfg: Miralupa; Lot: [id number]; VIS given (Priti: 03/08/16; 03/08/16). [facility] Immunization Administration One Vaccine Immunization Administration One Vaccine 18602 CELESTINA WELSH [facility] Immunization Administration Each Additional Vaccine Immunization Administration Each Additional Vaccine 46876 WELSH, CELESTINA P [facility] Vaccines Viral Varicella (Active) Vaccines Viral Varicella (Active) 10804 CELESTINA WELSH Varicella; Series #: 2; .5 mL; SC; Left Arm; Mfg: Neumitra; Lot: [id number]; VIS given (Priti: 10/01/2017). Virgilio Carcamo Supervised Injection Intramuscular Antibiotic Supervised Injection Intramuscular Antibiotic 63757 017 RUDI-TYL ER, TAMICA V [facility] Immunization Administration One Vaccine Immunization Administration One Vaccine 51773 017 RUDI-TYL ER, TAMICA V [facility] Immunization Administration Each Additional Vaccine Immunization Administration Each Additional Vaccine 00881 017 RUDI-TYL ER, TAMICA V [facility] Hepatitis A And Hepatitis B (Intramuscular Use) Adult Dosage Hepatitis A And Hepatitis B (Intramuscular Use) Adult Dosage 78686 017 RUDI-TYL ER, TAMICA V [facility] Vaccines Viral Polio, Inactivated (Salk) Vaccines Viral Polio, Inactivated (Salk) 87906 017 RUDI-TYL ER, TAMICA V [facility] Immunization Administration One Vaccine Immunization Administration One Vaccine 25594 017 DIANA BAZZI [facility] Audiometry Group Testing Audiometry Group Testing 08247 017 JASON CRAIG [facility] Patient education, not otherwise cla ified, non-physician provider, group, per se ion 017 JASON CRAIG Hepatitis A And Hepatitis B (Intramuscular Use) Adult Dosage Hepatitis A And Hepatitis B (Intramuscular Use) Adult Dosage 39590 017 SAL BAIG Vaccines Adenovirus Type 4 Live, For Oral Use Vaccines Adenovirus Type 4 Live, For Oral Use 85191 017 SAL BAIG Vaccines Adenovirus Type 7 Live, For Oral Use Vaccines Adenovirus Type 7 Live, For Oral Use [address] Supervised Injection Intramuscular Antibiotic Supervised Injection Intramuscular Antibiotic 34034 017 SAL BAIG Preventive Medicine Test Results Documented Standardized Depre ion Screening Preventive Medicine Test Results Documented Standardized Depression Screening 1220F 017 SAL BAIG Immunization Administration Each Additional Vaccine Immunization Administration Each Additional Vaccine [address] Supervised Injection Intramuscular Supervised Injection Intramuscular 03528 017 SAL BAIG Venipuncture Venipuncture 45506 017 SAL BAIG Collection Of Capillary Blood Specimen Collection Of Capillary Blood Specimen 00184 017 SAL BAIG Immunization Administration One Vaccine Immunization Administration One Vaccine 28723 017 SAL BAIG Skin Test Anergy Tuberculin Intradermal Skin Test Anergy Tuberculin Intradermal 17089 017 SAL BAIG Pneumococcal Polysaccharide Vaccine Adult Dos For Intramusc Pneumococcal Polysaccharide Vaccine Adult Dos For Intramusc 46436 017 SAL BAIG Meningococcal Polysaccharide Vaccine (Active) Meningococcal Polysaccharide Vaccine (Active) 14701 017 SAL BAIG Tdap Vaccine Seven Years Of Age And Above Tdap Vaccine Seven Years Of Age And Above 32187 017 SAL BAIGne [place] Suicide Risk Dangerousness Assessment Suicide Risk 3085F FLETCHER KIM Exercises A isted Exercises For ROM Exercises Assisted Exercises For ROM 40063 TING CLARK Threshold Audiogram (Pure Tone) Automated Threshold Audiogram (Pure Tone) Automated 0208T BEATA MARIANO [facility] Patient education, not otherwise cla ified, non-physician provider, group, per se ion BEATA MARIANO [facility] Ear mold/insert, disposable, any type BEATA MARIANO [facility] Psychiatric Evaluation Comprehensive Examination Psychiatric Evaluation Comprehensive Examination [facility] Physical Therapy: ___ Se ion Segments, 15 Minutes Each Physical Therapy: ___ Session Segments, 15 Minutes Each 65776 MARY PAZ [facility] Modalities Vasopneumatic Device Modalities Vasopneumatic Device 70678 MARY PAZ [facility] Modalities Cryotherapy Cold Packs Modalities Cryotherapy Cold Packs 46887 MARY PAZ [facility] Immunization Administration One Vaccine Immunization Administration One Vaccine 20635 TING HERNADEZ [facility] Psychiatric Therapy Individual Approximately 45-50 Minutes Psychiatric Therapy Individual Approximately 45-50 Minutes [id number] SHARON HERNANDEZ [facility] Physical Medicine Physical Therapy Re-Evaluation Physical Medicine Physical Therapy Re-Evaluation 81974 TING CLARK [facility] Physical Therapy Neuromuscular Re-education Physical Therapy Neuromuscular Re-education 40038 TING CLARK [facility] Non-Physician Phone Call To Patient/Provider Brief (5-10min) Non-Physician Phone Call To Patient/Provider Brief (5-10min) 46457 ALBERT ELLER [facility] Psychiatric Therapy Group (Interview) Psychiatric Therapy Group (Interview) 11480 ALBERT ELLER [facility] Psychiatric Therapy Individual Approximately 20-30 Minutes Psychiatric Therapy Individual Approximately 20-30 Minutes 14687 SHARON HERNANDEZ TNFranklin [facility] Brief communication technology-based service, e.g. virtual check-in, by a physician or other qualified health care miriam turner who can report evaluation and management services, provided to an established patient, not originating from a related E/M service provided within the previous 7 days nor leading to an E/M service or procedure within the next 24 hours or soonest available appointment; 5-10 minutes of medical discu ion SHARON HERNANDEZ TNFranklin [facility] Phys Therapy Education Self Care Training - Per 15 Minutes Phys Therapy Education Self Care Training - Per 15 Minutes 61577 SAIRA MORALEZ [facility] Waiver services; not otherwise specified (NOS) [facility] Social History Combined list of available smoking, tobacco, and other social history from Department of Defense and Veterans Affairs facilities. Social History Type Response Date Comment [facility] e Tobacco smoking status NHIS VA-TOBACCO NEVER USED 10/02/2023 [facility] History of tobacco use VA-TOBACCO NEVER USED 07/28/2022 [facility] History of tobacco use VA-TOBACCO NEVER USED 06/29/2021 [facility] Smoking Status Never (less than 100 in lifetime) 09/09/2020 Unknown Organization Sex Representation Male (finding) 01/01/2020 Un known Organization Sexual Orientation Amb[facility] tory Pharmacy Gender identity [facility] Pharm[facility] This section is an empty social history section. DoD Assessment and Plan Combined list of future care activities from Department of Defense and Veterans Affairs facilities (e.g., assessment and plan notes, appointments, orders, and referrals). Additional future care activities may be listed in the Plan of Care section. Result Assessment and Plan Date Source Assessment and Plan Extracted from:Title : Final Physical Author: EULALIA PENALOZA Date: 03/23/21 1. E XAM, OCCUPATIONAL, CARE HOME OR SEPARATION FROM UNIFORMED SERVICE, LONG SM is fit for separation. Final physical Paperwork was reviewed, signed and uploaded to [employer]. 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 No disqualifying medical or mental health conditions noted at this time. SM encouraged t o follow up with VA/PCM for any medical concerns after discharge from the [employer]. P rovided Medication refill to bridge SM while he establishes care with the VA. 2. O CD - Obsessive-compulsive disorder 3. A djustment disorder 4. L aboratory procedures -general Orders: Effexor XR 75 mg oral capsule, extended release, 3 cap(s), Oral, Daily, # 180 cap(s), 3 total refill(s), Maintenance, 3 cap(s) Oral Daily, Pharmacy: [facility] [address] [facility] [Not filled] Extracted from:Title: SEPARATION AUDIOGRAM 7TH REG [id number] USED Author: ARI DEWEY Date: 03/15/21 1. E XAM, FORMAL OCCUPATIONAL HEALTH PROGRAM INCLUDING HEARING CONSERVATION PROGRAM, DUE TO TERMINATION OF OCCUPATIONAL WORKPLACE EXPOSURE Annual (___) Termination (_X_) Follow up 1 (___) Follow up 2 (___) Non-Hearing Conservation (___) Audiogram Conducted. Patient denies and ENT Problems. Patient educated on results of Audiogram and conveyed understanding. Education on hearing protection and acoustic trauma was provided along with hearing protection. Annual Training in accordance with YNR4114.3A is conducted during [employer] stand down or group training (rosters maintained by Next Caller Officer for completion) Patient stated they understood and have no questions at this time. Extracted from:Title: Eye Care APSO Office Visit Note Author: MELLISA VAZQUEZ Ellen Date: 03/14/21 EXAM, OCCUPATIONAL, CARE HOME OR SEPARATION FROM UNIFORMED SERVICE, SHORT Patient informed that this is not a complete eye exam. Patient education has been given regarding the diagnoses made as well as the spectacles provided and adaptation to this prescription, if given. Patient has been instructed to schedule a complete eye exam with dilation i f not have done so in last 24 months. Patient has been made aware that contact lens wear is N OT authorized during deployment or training, unless specifically noted in this note. Released w/o Limitations. F ollow up: as needed in the TP O PTOMETRY clinic. Discussed: Diagnosis, Medication(s)/Treatment(s), Alternatives, Potential Side Effects with Patient who indicated understanding. Ordered: Screening Test Visual Acuity Quantitative Bilat 44806 Extracted from:Title: ANNUAL AUDIOGRAM 7TH REG Author: ARI DEWEY Date: 11/02/20 1. E XAM, FORMAL OCCUPATIONAL HEALTH PROGRAM INCLUDING HEARING CONSERVATION PROGRAM, PERIODIC FOR CONTINUED SURVEILLANCE FOR OCCUPATIONAL WORKPLACE EXPOSURE Annual (_X_) Termination (___) Follow up 1 (___) Follow up 2 (___) Non-Hearing Conservation (___) Audiogram Conducted. Patient denies and ENT Problems. Patient educated on results of Audiogram and conveyed understanding. Education on hearing protection and acoustic trauma was provided along with hearing protection. Annual Training in accordance with MWH1170.3A is conducted during [employer] stand down or group training (rosters maintained by Next Caller Officer for completion) Patient stated they understood and have no questions at this time. Extracted from:Title: Office Clinic Note - left ankle/foot pain Author: SANTIAGO FLEMING Date: 09/09/20 1. P ain of left ankle joint SM with left ankle and foot pain x 3 days s/p tripping and landing on dorsal aspect of foot in plantar flexed position. Does not think he rolled his ankle. Denies hearing a pop and was able to ambulate immediately after incident. Notes more significant swelling the following morning (incident occurred the night prior) and has had progressive pain with ambulation. Denies numbness or tingling of his foot. On exam, looks well and ambulates with a mild limp. No gross edema but some erythema of midfoot region near ankle. TTP of midfoot zone, posterior medial malleolus and along ATFL. - Weight bearing radiographs of left foot/ankle obtained (positive Pokagon criteria), both wnl - no fracture or dislocation - Suspect mild ligamentous strain - Advise continued conservative management with ice, elevation and rest - Start naproxen 500mg bid and advise purchasing compressive ankle brace - Advise ROM/stretching exercises - info provided for [facility] rehab - Light duty x 14 days, can f/u for LD extension if pain still not resolved. Would likely consider formal PT referral at that time Ordered: Office Visit Level 4 Est 24016 Extracted from:Title: Annual PHA 16 Jun 2020 Author: TEETEE REVELES Date: 06/16/20 1. 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 Member D enies a ks health concerns at this time. Member has been found F it for full duty and world wide deployable a t this time. PHA was documented on the [employer] website. Any further information may be obtained there. Ordered: Office Visit Level 1 Est [id number] Extracted from:Title: Annual audiogram Author: EARLE JUNIOR Date: 06/02/20 1. E LAURY, FORMAL OCCUPATIONAL HEALTH PROGRAM INCLUDING HEARING CONSERVATION PROGRAM, PERIODIC FOR CONTINUED SURVEILLANCE FOR OCCUPATIONAL WORKPLACE EXPOSURE 04/08/2025 003-Aramis Guajardo [facility] Functional Status Combined list of recent functional and cognitive assessments recorded at [employer] ([facility] Functional [place] Measurement (FIM) Scale: 1 = Total Assistance (Subject = 0% +), 2 = Maximal Assistance (Subject = 25% +), 3 = Moderate Assistance (Subject = 50% +), 4 = Minimal Assistance (Subject = 75% +), 5 = Supervision, 6 = Modified [place] (Device), 7 = Complete [place] (Timely, Safely). Assessment Date/Time Source Assessment Type Assessment Skill Assessment Score Assessment Details No data available for this section
--- OUTSIDE RECORDS SUMMARY | 2025-04-08 09:07 | XMS_ITS | Clinical Summary ---
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 FEDERAL
== END 2025-04-08 09:00 | disposition home or self-care (01) ==
LOC: ANHAUDIO 09:01
PROVIDERS: PCP Otolaryngology; Visit Provider Otolaryngology
DX: H90.71 Mixed conductive and sensorineural hearing loss, unilateral, right ear, with unrestricted hearing on the contralateral side (principal); H93.11 Tinnitus, right ear
CPT/HCPCS: 92557; 92567